=== PATIENT | male | born 1940 | race Caucasian/White ===

== ENCOUNTER 2019-11-01 11:48 | Inpatient (IN) | payer MEDICARE, BC ==
[2019-11-01] VITALS (17 sets, daily range): BP systolic 115–145; BP diastolic 49–62
[~2019-11-01] VITALS: Ht 170.2 cm; Wt 67.1 kg
[2019-11-01] MEDS ORDERED: LISI-607 PO (12:01)
[2019-11-01] MEDS ORDERED: BUPR8TAB4 SL (12:17)
[2019-11-01] MEDS ORDERED: ZOLP10TA2 PO (12:17)
[2019-11-01] MEDS ORDERED: ROSU5TAB13 PO (12:17)
[2019-11-01] MEDS ORDERED: AMLO5TAB9 PO (12:17)
[2019-11-01 12:33] LABS: BASOPHILS % (AUTO) 0.4 % (0.0-2.0); EOSINOPHILS % (AUTO) 0.4 % (0.0-7.0); HEMATOCRIT 21.4 % (36.7-47.1); LYMPHOCYTES # (AUTO) 1.1 K/uL (20.0-40.0); LYMPHOCYTES % (AUTO) 18.3 % (20.5-51.5); MEAN CORPUSCULAR HEMOGLOBIN 32.5 uug (23.8-33.4); MEAN CORPUSCULAR HGB CONC 33 g/dL (32.5-36.3); MONOCYTES # (AUTO) 0.5 K/uL (2.0-10.0); MONOCYTES % (AUTO) 8.1 % (0.0-11.0); NEUTROPHILS # (AUTO) 4.4 K/uL (1.8-8.9); NEUTROPHILS % (AUTO) 72.8 % (38.5-71.5); PLATELET COUNT (AUTO) 400 K/uL (152-348); WHITE BLOOD COUNT (AUTO) 6.1 K/uL (3.6-10.2)
[2019-11-01 12:44] LABS: CREATININE 1.3 mg/dL (0.6-1.3)
[2019-11-01 12:50] LABS: BILIRUBIN,TOTAL 0.4 mg/dL (0.2-1.0)
[2019-11-01 13:06] LABS: RED BLOOD CELL COUNT(AUTO) 2.14 MIL/uL (4.06-5.63)
[2019-11-01 13:18] LABS: BILIRUBIN,DIRECT 0.1 mg/dL (0.0-0.2)
--- NOTE | 2019-11-01 14:10 | NUR ---
received from er, oriented to room, made comfortable. anxious to eat, get blood and go home. made aware plan of care. awaiting orders. own meds sent to pharmacy. no acute bleeding noted.
[2019-11-01] MEDS ORDERED: ENALAPRILAT DIHYDRATE 1.25 MG/1 ML VIAL IV PRN (15:15)
[2019-11-01] MEDS ORDERED: MORPHINE SULFATE 2 MG/1 ML DISP.SYRIN IV PRN (15:15)
[2019-11-01] MEDS ORDERED: ACETAMINOPHEN 650 MG SUPP.RECT RC PRN (15:15)
[2019-11-01] MEDS ORDERED: LORAZEPAM 2 MG/1 ML VIAL IV PRN (15:15)
[2019-11-01] MEDS ORDERED: IV D5 1/2 NS 1000 ML 1,000 ML IV PRN (15:15)
[2019-11-01] MEDS ORDERED: PANTOPRAZOLE SODIUM 40 MG VIAL IV SCH (15:15)
[2019-11-01] MEDS ORDERED: ONDANSETRON 4 MG/2 ML VIAL IV PRN (15:15)
[2019-11-01 15:36] LABS: IRON, SERUM 68 ug/dL (50-175)
--- NOTE | 2019-11-01 17:40 | NUR ---
family in , supportive of patient care
--- NOTE | 2019-11-01 18:55 | NUR ---
tolerating blood #1 with problem. will eat later per patient
--- NOTE | 2019-11-01 20:02 | NUR ---
first unit of blood given. v/s stable. no signs of acute distress. lungs clear. patient resting and eating.
--- NOTE | 2019-11-01 20:30 | NUR ---
Dr. Barriga made aware that patient wishes to leave A after 2nd unit of blood.
--- NOTE | 2019-11-01 22:00 | NUR ---
protonix IV not administered due to blood administration.
[2019-11-02] VITALS: BP 131/66
--- NOTE | 2019-11-02 | NUR ---
patient refused protonix IV after blood administration and wishes to just leave [facility].
[2019-11-02 00:45] VITALS: BP 132/69
--- NOTE | 2019-11-02 00:45 | NUR ---
patients 2nd unit of blood transfused. v/s stable. no signs of acute distress. patient denies SOB. lungs clear.
--- NOTE | 2019-11-02 00:50 | NUR ---
patient aware that pharmacy medications are in pharmacy. wishes to sign out AMA without pharmacy medication because of closure at this time. 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 will inform charge in the AM regarding situation.
--- NOTE | 2019-11-02 01:00 | NUR ---
patient signed AMA paperwork and left hospital.
--- NOTE | 2019-11-02 01:26 | NUR ---
incident report for patient leaving AMA completed.
== END 2019-11-02 00:50 | disposition left against medical advice (07) | DRG 377 ==
LOC: ER 12:00 → TELE3 13:53
PROVIDERS: ADMIT Internal Medicine; ATTEND Internal Medicine
PROC: 30233N1 Transfusion of Nonautologous Red Blood Cells into Peripheral Vein, Percutaneous Approach (ICD-10-PCS; principal; 2019-11-01)
DX: K92.2 Gastrointestinal hemorrhage, unspecified (principal); N17.0 Acute kidney failure with tubular necrosis; D50.0 Iron deficiency anemia secondary to blood loss (chronic); I44.0 Atrioventricular block, first degree; E53.8 Deficiency of other specified B group vitamins; E78.5 Hyperlipidemia, unspecified; I11.9 Hypertensive heart disease without heart failure
CPT/HCPCS: 36415; 70030-TC; 71045; 82378; 83550; 85025; 85730; 86850; 86900; 86901; 86920; 93005; A4663; C9113; G0378; J3490; J7050; P9016-BL; P9021